=== PATIENT | male | born 1955 | race Caucasian/White ===

== ENCOUNTER 2025-03-29 12:35 | Outpatient (REF) | payer BC, SELFPAY ==
--- NOTE | ~2025-03-29 | US_ITS ---
Procedure: Endovascular ablation of the left greater saphenous vein with VenaSeal. Adjunctive ultrasound-guided foam sclerotherapy of branch varicosity. HISTORY: Varicose veins INDICATIONS: Symptomatic varicose veins bilateral lower extremity. Symptoms include edema, aching and pressure. PROCEDURE/FINDINGS: Informed consent was obtained following a discussion of the risks and benefits of the procedure with the patient. The patient was placed supine on the ultrasound procedure table. Preliminary ultrasound demonstrates dilated refluxing left greater saphenous vein. A site was marked on the left medial leg . The left leg was sterilely prepped and draped. A 23-gauge butterfly was used to access the branch varicosity under direct ultrasound guidance. Following the administration of 1% lidocaine for local anesthesia, the greater saphenous vein was accessed with a 21-gauge micropuncture needle under direct ultrasound guidance. The needle was exchanged for the transitional dilator over a 0.018 guidewire. A 0.035 guidewire was then advanced to the saphenofemoral junction. The VenaSeal sheath was then inserted over the wire and positioned 10 cm from the saphenofemoral junction. VenaSeal glue was then delivered along the length of the greater saphenous vein while retracting the catheter with compression at the saphenofemoral junction to prevent glue from traveling forward. The delivery device was removed and hemostasis was achieved with manual compression. Foam was prepared using the Tessari method utilizing 1% sodium tetradecyl seal and room air in a 1:4 ratio. The foam was delivered under direct ultrasound guidance. The access was removed, hemostasis achieved, and a sterile dressing was applied. Postprocedure ultrasound demonstrates successful occlusion of the treated veins with widely patent and compressible saphenofemoral junction. Patient tolerated the procedure well without immediate complication. US/US Vein Inj Sclerosant Single IMPRESSION: Successful VenaSeal ablation of the left greater saphenous vein and successful ultrasound guided foam sclerotherapy of branch varicosity. Follow-up ultrasound in 5-7 days Procedure performed by Ronn Ayala NP and supervised by Burke Kaur M.D. Electronically signed by: Burke Kaur MD 03/30/2025 02:22 PM EDT
--- NOTE | ~2025-03-29 | US_ITS ---
Procedure: Endovascular ablation of the left greater saphenous vein with VenaSeal. Adjunctive ultrasound-guided foam sclerotherapy of branch varicosity. HISTORY: Varicose veins INDICATIONS: Symptomatic varicose veins bilateral lower extremity. Symptoms include edema, aching and pressure. PROCEDURE/FINDINGS: Informed consent was obtained following a discussion of the risks and benefits of the procedure with the patient. The patient was placed supine on the ultrasound procedure table. Preliminary ultrasound demonstrates dilated refluxing left greater saphenous vein. A site was marked on the left medial leg . The left leg was sterilely prepped and draped. A 23-gauge butterfly was used to access the branch varicosity under direct ultrasound guidance. Following the administration of 1% lidocaine for local anesthesia, the greater saphenous vein was accessed with a 21-gauge micropuncture needle under direct ultrasound guidance. The needle was exchanged for the transitional dilator over a 0.018 guidewire. A 0.035 guidewire was then advanced to the saphenofemoral junction. The VenaSeal sheath was then inserted over the wire and positioned 10 cm from the saphenofemoral junction. VenaSeal glue was then delivered along the length of the greater saphenous vein while retracting the catheter with compression at the saphenofemoral junction to prevent glue from traveling forward. The delivery device was removed and hemostasis was achieved with manual compression. Foam was prepared using the Tessari method utilizing 1% sodium tetradecyl seal and room air in a 1:4 ratio. The foam was delivered under direct ultrasound guidance. The access was removed, hemostasis achieved, and a sterile dressing was applied. Postprocedure ultrasound demonstrates successful occlusion of the treated veins with widely patent and compressible saphenofemoral junction. Patient tolerated the procedure well without immediate complication. US/US venaseal vein closure IMPRESSION: Successful VenaSeal ablation of the left greater saphenous vein and successful ultrasound guided foam sclerotherapy of branch varicosity. Follow-up ultrasound in 5-7 days Procedure performed by Ronn Ayala NP and supervised by Burke Kaur M.D. Electronically signed by: Burke Kaur MD 03/30/2025 02:22 PM EDT
--- OUTSIDE RECORDS SUMMARY | 2025-03-29 12:57 | XMS_ITS | Clinical Summary ---
Author Organization [facility] [email or web address] Address [address] [facility] [place] [address] Phone Care Team Providers Care Security Installer Name Role Phone Jean Barrera MD Primary Care Provider [phone] Allergies No known active allergies Medications allopurinoL (ZYLOPRIM) 300 mg tablet Take 1 tablet (300 mg total) by mouth 1 (one) time each day. Active aspirin 81 mg EC tablet Take 1 tablet (81 mg total) by mouth 1 (one) time each day. Active mv-min/folic/K1/ lycopen/lutein (CENTRUM SILVER MEN ORAL) Take 1 tablet by mouth 1 (one) time each day. Active doxazosin (CARDURA) 4 mg tablet Take 1 tablet (4 mg total) by mouth at bedtime. Active omeprazole OTC (PriLOSEC OTC) 20 mg EC tablet Take 1 tablet (20 mg total) by mouth 1 (one) time each day. Do not crush, chew, or split. Active simvastatin (ZOCOR) 40 mg tablet Take 1 tablet (40 mg total) by mouth at bedtime. Active MAGNESIUM GLYCINATE ORAL Take 300 mg by mouth 1 (one) time each day. Active propranolol LA (Inderal LA) 60 mg 24 hr capsuleIndicatio ns:Atrial tachycardia (CMS/HCC V24) Take 1 capsule (60 mg total) by mouth 1 (one) time each day. Do not crush, chew, or split. 90 each 3 5 03/15/20 26 Active atenoloL (TENORMIN) 50 mg tablet Take 1 tablet (50 mg total) by mouth 1 (one) time each day. 03/15/20 25 Discontinu ed(Dose adjustment ) Active Problems Problem Noted Date Diagnosed Date PAF (paroxysmal atrial fibri llation) ([facility] V24, [facility] V28) 03/10/2025 Overview (03/10/2025): ON HOLTER MONITOR Encounters Date Type Department Care Team Description 03/15/2025 10:20 AM EDT Office Visit [facility] Cardiology [facility] [address] [place] [address] Charlette Mancsuo MD PAF (paroxysmal atrial fibrillation) ([facility] V24, [facility] V28) (Primary Dx); Atrial tachycardia ([facility] V24) 01/26/2025 Telephone [facility] [address] [place] [address] Jean Barrera MD Referral (Received routine paper referral. aek) from Last 3 Months Medical History Medical History Date Comments Pure hypercholesterolemia Benign essential hypertension Hyperglycemia Symptomatic varicose veins of left lower extremi ty Social History Tobacco Use Types Packs/Day Years Used Date Smoking Tobacco: Former Cigarettes Smokeless Tobacco: Never Tobacco Cessation:Counseling Given: Not Answered Comments:Quit smoking 20+ years Alcohol Use Standard Drinks/Week Comments Not Currently 0 (1 standard drink = 0.6 oz pur e alcohol) Sex and Gender Information Value Date Recorded Sex Assigned at Not on file Legal Sex Male 11:08 PM EST Gender Identity Not on file Sexual Orientation Not on file Obstetrics History Last Filed Vital Signs Vital Sign Reading Time Taken Comments Blood Pressure 140/80 03/15/2025 1:10 PM EDT Pulse 76 03/15/2025 10:23 AM EDT Temperature - - Respiratory Rate - - Oxygen Saturation 96% 03/15/2025 10:23 AM EDT Inhaled Oxygen Concentration - - Weight 108 kg (237 lb) 03/15/2025 10:23 AM EDT Height 182.9 cm (6') 03/15/2025 10:23 AM EDT Body Mass Index 32.14 03/15/2025 10:23 AM EDT Plan of Treatment Upcoming Encounters Date Type Department Care Team (Late st Contact Info) Description 2025 9:50 AM EDT Consult [facility] Cardiology [facility] [address] [place] [phone] Deandra Downs MD [address] [place] [address] 07/03/2025 9:10 AM EDT Office Visit [facility] [address] [place] [phone] Ying Wagner NP [address] [place] [address] [address] [place] [address] Health Maintenance Due Date Last Done Comments Abdominal Aortic Aneurysm (AAA) Screen 01/26/2025 Cholesterol Screening (Lipid Panel) 01/26/2025 Colorectal Cancer Screening: Colonoscopy 01/26/2025 Depression Screening 01/26/2025 Falls Risk Assessment 01/26/2025 Hepatitis C Screening 01/26/2025 Social Influencers of Health Screening 01/26/2025 COVID-19 Vaccine (9 - Pfizer risk 2023- season) 2025 08/07/2024, 08/23/2023, 03/12/2023, Additional history exists Hypertension/CHF/CAD Annual BMP Blood Test 03/15/2025 DTaP,Tdap,and Td Vaccines (2 - Td or Tdap) 09/29/2033 09/29/2023 Zoster Vaccines Completed 10/21/2020, 12/2019, 08/23/2016 Pneumococcal Vaccine: 50+ Years Completed 03/20/2022 RSV Immunization Adult Patients Completed 09/29/2023 Influenza Vaccine Completed 08/07/2024, , 08/11/2022, Additional history exists HIB Vaccines Aged Out No longer eligi ble based on patient's age to complete this topic HPV Vaccines Aged Out No longer eligi ble based on patient's age to complete this topic Hepatitis A Vaccines Aged Out No long er eligible based on patient's age to complete this topic Hepatitis B Vaccines Aged Out No long er eligible based on patient's age to complete this topic IPV Vaccines Aged Out No longer eligi ble based on patient's age to complete this topic MMR Vaccines Aged Out No longer eligi ble based on patient's age to complete this topic Meningococcal ACWY Vaccine Aged Out N o longer eligible based on patient's age to complete this topic Meningococcal B Vaccine Aged Out No l onger eligible based on patient's age to complete this topic RSV Immunization Patients Under 20 months Aged Out No longer eligible based on patient's age to complete this topic Varicella Vaccines Aged Out No longer eligible based on patient's age to complete this topic Procedures Procedure Name Priority Date/Time Associated Diagnosis Comments ECG 12-LEAD Routine 03/15/2025 10:32 AM EDT PAF (paroxysmal atrial fibrillation) ([facility] V24, [facility] V28) from Last 3 Months Results * ECG 12 lead (03/15/2025 10:32 AM EDT) Ventricular Rate ECG 71 BPM GEMUSE Atrial Rate 71 BPM GEMUSE P-R Interval 224 ms GEMUSE QRS Duration 84 ms GEMUSE Q-T Interval 394 ms GEMUSE QTc 428 ms GEMUSE P Wave [place] 28 degrees GEMUSE R [place] 17 degrees GEMUSE T [place] 13 degrees GEMUSE ECG Interpretation Sinus rhythm with 1st degree A-V block Low voltage QRS Borderline ECG When compared with ECG of 20-MAR-2014 09:38, [place] interval has increased Confirmed by Patti MANCUSO, CHARLETTE ([id number]) on 03/15/2025 12:59:42 PM GEMUSE 03/15/2025 10:3 2 AM EDT 03/15/2025 12:59 PM EDT us Charlette Mancuso MD ECG ORDERABLES Final Result GEMUSE from Last 3 Months Insurance MEDICARE [facility] Care Teams Security Installer Relationship Specialty Start Date End Date Jean Barrera MD [address] [place] [address] PCP - General Internal Medicine 01/26/25
[2025-03-29] MEDS: Lidocaine HCl 1 % MPF 5 ML VIAL 10 ML SUBCUT (15:09)
[2025-03-29] MEDS: Sodium Tetradecyl Sulfate 1% 2 ML VIAL 0.5 ML INTRAVARIC (15:12)
== END 2025-03-29 12:36 | disposition home or self-care (01) ==
LOC: HO.US 12:35
PROVIDERS: PCP Internal Medicine; Visit Provider Student in an Organized Health Care Education/Training Program
DX: I83.813 Varicose veins of bilateral lower extremities with pain (principal); I87.2 Venous insufficiency (chronic) (peripheral); I87.1 Compression of vein
CPT/HCPCS: 36470; 36482; C1894; J2003

== ENCOUNTER → 2025-03-29 13:00 | Outpatient (BNV) | payer BC, SELFPAY | PROVIDERS: PCP Internal Medicine | DX: I83.892 Varicose veins of left lower extremity with other complications (principal) | CPT/HCPCS: 36470 ==

== ENCOUNTER 2025-04-06 12:38 | Outpatient (REF) | payer BC, SELFPAY ==
--- NOTE | ~2025-04-06 | US_ITS ---
CLINICAL HISTORY: FOLLOW UP VENASEAL Left lower extremity duplex venous Doppler Comparison: [place] - US VENASEAL VEIN CLOSURE - 03/29/25 12:57 EDT Technique: Grayscale/Color/Duplex Doppler sonographic evaluation of the deep venous system within the left lower extremity. Findings: Left lower extremity Common femoral vein: Patent CFV/GSV junction: Patent Femoral vein: Patent Popliteal vein: Patent Infrapopliteal veins: Patent where seen Soft tissue: Left greater saphenous vein mid thigh varicosities are closed. Status post left greater saphenous vein venaseal which remains closed 0.9 cm from the junction with the femoral vein Impression: 1. Negative for left lower extremity DVT. 2. Left mid thigh greater saphenous vein varicosities appear closed. Status post venaseal of the left greater saphenous vein which remains closed 0.9 cm from the junction with the left femoral vein. This document has been electronically signed by: Hasmukh Bowers MD on 04/07/2025 12:44:45
--- OUTSIDE RECORDS SUMMARY | 2025-04-06 12:41 | XMS_ITS | Clinical Summary ---
Author Organization [facility] [employer] Address [address] [facility] [place] [address] Phone Care Team Providers Care Line Out Man Name Role Phone Jean Barrera MD Primary Care Provider [phone] Allergies No known active allergies Medications allopurinoL [...] Diagnosed Date PAF (paroxysmal atrial fibri llation) ([facility] V24, [facility] V28) 03/10/2025 Overview (03/10/2025): ON HOLTER MONITOR Encounters Date Type Department Care Team Description 03/15/2025 10:20 AM EDT Office Visit [facility] Cardiology [facility] [address] [place] [address] Charlette Mancuso MD PAF (paroxysmal atrial fibrillation) ([facility] V24, [facility] V28) (Primary Dx); Atrial tachycardia ([facility] V24) 01/26/2025 Telephone [facility] [address] [place] [address] Jean Barrera MD Referral (Received [...] Info) Description 2025 9:50 AM EDT Consult [facility] Cardiology [facility] [address] [place] [phone] Deandra Downs MD [address] [place] [address] 07/03/2025 9:10 AM EDT Office Visit [facility] [address] [place] [phone] Ying Wagner NP [address] [place] [address] [address] [place] [address] Health Maintenance Due Date Last Done Comments [...] 10:32 AM EDT PAF (paroxysmal atrial fibrillation) ([facility] V24, [facility] V28) from Last 3 Months Results * ECG 12 lead (03/15/2025 10:32 AM EDT) Ventricular Rate ECG 71 BPM GEMUSE Atrial Rate 71 BPM GEMUSE P-R Interval 224 ms GEMUSE QRS Duration 84 ms GEMUSE Q-T Interval 394 ms GEMUSE QTc 428 ms GEMUSE P Wave [place] 28 degrees GEMUSE R [place] 17 degrees GEMUSE T [place] 13 degrees GEMUSE ECG Interpretation Sinus rhythm with 1st degree A-V block Low voltage QRS Borderline ECG When compared with ECG of 20-MAR-2014 09:38, [place] interval has increased Confirmed by Patti MANCUSO, CHARLETTE ([id number]) on 03/15/2025 12:59:42 PM GEMUSE 03/15/2025 10:3 2 AM EDT 03/15/2025 12:59 PM EDT us Charlette Mancuso MD ECG ORDERABLES Final Result GEMUSE from Last 3 Months Insurance MEDICARE [facility] Care Teams Line Out Man Relationship Specialty Start Date End Date Jean Barrera MD [address] [place] [address] PCP - General Internal Medicine 01/26/25
== END 2025-04-06 12:39 | disposition home or self-care (01) ==
LOC: HO.US 12:38
PROVIDERS: PCP Internal Medicine; Visit Provider Student in an Organized Health Care Education/Training Program
DX: I87.2 Venous insufficiency (chronic) (peripheral) (principal)
CPT/HCPCS: 93971

== ENCOUNTER → 2025-04-06 13:10 | Outpatient (BNV) | payer BC, SELFPAY | PROVIDERS: PCP Internal Medicine; Visit Provider Radiology Diagnostic Radiology | DX: I83.92 Asymptomatic varicose veins of left lower extremity (principal) | CPT/HCPCS: 93971 ==